=== PATIENT | male | born 1960 | race Caucasian/White ===

== ENCOUNTER → 2023-10-21 | Outpatient (CLI) | payer MEDICARE | END | disposition home or self-care (01) | LOC: RAD 12:28 | PROVIDERS: ATTEND Chiropractor | DX: M47.816 Spondylosis without myelopathy or radiculopathy, lumbar region (principal); K80.20 Calculus of gallbladder without cholecystitis without obstruction; M41.86 Other forms of scoliosis, lumbar region; M48.061 Spinal stenosis, lumbar region without neurogenic claudication; M25.78 Osteophyte, vertebrae; M16.11 Unilateral primary osteoarthritis, right hip; M25.851 Other specified joint disorders, right hip; M19.011 Primary osteoarthritis, right shoulder; D16.7 Benign neoplasm of ribs, sternum and clavicle; M85.811 Other specified disorders of bone density and structure, right shoulder; M47.812 Spondylosis without myelopathy or radiculopathy, cervical region; M48.02 Spinal stenosis, cervical region ==